=== PATIENT | female | born 2000 | race Caucasian/White ===

== ENCOUNTER 2020-06-11 13:38 | Emergency (ER) | payer OTHER ==
[2020-06-11 13:52] VITALS: BP 120/78; PULSE 102; BMI 31.6
--- OUTSIDE RECORDS SUMMARY | 2020-06-11 14:04 | XMS ---
:2000 Author Organization [facility] Support Name Relationship Address Phone UE Unavailable Unavailable Unavailable SOPHIA AQUINO MOTHER [address] [facility] [place] [address] Re-disclosure Warning The records that you are about to access may contain information from federally- assisted alcohol or drug abuse programs. If such information is present, then the following federally mandated warning applies: This information has been disclosed to you from records protected by federal confidentiality rules (42 CFR part 2). The federal rules prohibit you from making any further disclosure of this information unless further disclosure is expressly permitted by the written consent of the person to whom it pertains or as otherwise permitted by 42 CFR part 2. A general authorization for the release of medical or other information is NOT sufficient for this purpose. The Federal rules restrict any use of the information to criminally investigate or prosecute any alcohol or drug abuse patient.The records that you are about to access may contain highly sensitive health information, the redisclosure of which is protected by Article 27-F of the [facility] Public Health law. If you continue you may haveaccess to information: Regarding HIV / AIDS; Provided by facilities licensed or operated by the [facility] Office of Mental Health; or Provided by the [facility] Office for People With Developmental Disabilities. If such information is present, then the following [facility] mandated warning applies: This information has been disclosed to you from confidential records which are protected by state law. State law prohibits you from making any further disclosure of this information without the specific written consent of the person to whom it pertains, or as otherwise permitted by law. Any unauthorized further disclosure in violation of state law may result in a fine or halfway sentence or both. A general authorization for the release of medical or other information is NOT sufficient authorization for further disclosure. Insurance Providers Payer name Policy type Policy ID Covered Covered libertarian's Policy P clark / Coverage libertarian ID relationship to [employer] [employer] type [place] [id number] ESSENTIAL PLAN 1 2
[2020-06-11] MEDS ORDERED: BACITRACIN 0.9 GM PACKET ONE (15:10)
[2020-06-11 15:47] LABS: BASO % 0.3 % (0-2.0); EOS % 1.9 % (0-4.5); HEMATOCRIT 40.6 % (32.4-45.2); HEMOGLOBIN 13.7 GM/dL (10.7-15.3); LYMPH % 15.5 % (8-40); MCH 30.1 pg (25.7-33.7); MCHC 33.7 g/dl (32.0-36.0); MEAN CELL VOLUME 89.3 fl (80-96); MEAN PLT VOLUME 8.6 fl (7.5-11.1); MONO % 5.7 % (3.8-10.2); NEUT % 76.6 % (42.8-82.8); PLATELET COUNT 302 K/MM3 (134-434); RBC 4.55 M/mm3 (3.60-5.2); RDW 13.5 % (11.6-15.6); WHITE BLOOD COUNT 9.2 K/mm3 (4.0-10.0)
[2020-06-11 16:08] LABS: POTASSIUM 4.2 mmol/L (3.5-5.1)
[2020-06-11 16:10] LABS: CALCIUM 9.8 mg/dL (8.5-10.1)
[2020-06-11 16:11] LABS: ALBUMIN 3.8 g/dl (3.4-5.0); BLOOD UREA NITROGEN 6.4 mg/dL (7-18)
[2020-06-11 16:14] LABS: CREATININE 0.4 mg/dL (0.55-1.3)
[2020-06-11 16:15] LABS: BILIRUBIN,TOTAL 0.5 mg/dL (0.2-1); TOT PROT 7.9 g/dl (6.4-8.2)
--- NOTE | 2020-06-11 16:17 | PDOC ---
History of Present Illness - General Chief Complaint: Pain Stated Complaint: POSSIBLE ETOPIC Time Seen by Provider: 06/11/20 14:35 History Source: Patient Exam Limitations: No Limitations - History of Present Illness Initial Comments: 06/11/20 16:12 20-year-old female history of asthma, LMP March 07, 2020 presents complaining of pelvic pain x 4 days with dysuria. Patient reports positive urine test taken at a pharmacy in the [facility] on March 2020. Went to a clinic April 28 and was told she is 6 weeks on ultrasound. Return to the [place] June 01, 2020. Went to [facility] today was treated with Macrobid and Pyridium for UTI. Had a urine test which is negative. Sent to the ED for further evaluation. Patient reports nausea and morning vomiting for 2 months associated with breast tenderness. denies vaginal bleeding, vaginal dis charge, back pain, chest pain, shortness of breath, palpitations, fever, chills. Patient does not take control and is currently sexually active with male partner, does not use protection. Has an OB appointment scheduled for June 26, 2020. ROS: as above PE: GENERAL: well-appearing, NAD HEAD: NCAT EYES: Pupils equal, round and reactive to light, sclera anicteric, conjunctiva clear ENT: pharynx: no erythema, no exudate, uvula midline NECK: supple CHEST: nontender RESP: clear, no w/r/r CARDIO: rrr, no m/g/r ABD: +BS, soft, nontender, non distended : deferred BACK: no midline spinal ttp, no CVAT EXTREMITIES: Normal range of motion, no edema NEUROLOGICAL: Normal speech, normal gait SKIN: Warm, Dry 06/11/20 17:19 Is this a multiple visit Asthma Patient?: No Past History - Medical History Allergies/Adverse Reactions: Allergies Allergy/AdvReac Type Severity Reaction Status Date / Time albuterol Allergy Verified 06/11/20 13:52 Home Medications: Ambulatory Orders NK [No Known Home Medication] 06/11/20 COPD: No - Reproductive History Is Patient Now?: No - Psycho-Social/Smoking History Smoking History: Never smoked *Physical Exam - Vital Signs Last Vital Signs Temp Pulse Resp BP Pulse Ox 102 H 18 120/78 100 06/11/20 13:46 06/11/20 13:46 06/11/20 13:46 06/11/20 13:46 ED Treatment Course - LABORATORY CBC & Chemistry Diagram: 06/11/20 15:30 06/11/20 15:30 - ADDITIONAL ORDERS Additional order review: Laboratory Results 06/11/20 15:30 Sodium 134 L Potassium 4.2 Chloride 104 Carbon Dioxide 23 Anion Gap 7 L BUN 6.4 L Random Glucose 68 L Calcium 9.8 Albumin 3.8 06/11/20 15:30 RBC 4.55 MCV 89.3 MCHC 33.7 RDW 13.5 MPV 8.6 Neutrophils % 76.6 Lymphocytes % 15.5 Monocytes % 5.7 Eosinophils % 1.9 Basophils % 0.3 Medical Decision Making - Medical Decision Making 06/11/20 16:17 20-year-old female history of asthma, LMP March 07, 2020 presents complaining of pelvic pain x 4 days with dysuria. Patient reports positive urine test taken at a pharmacy in the [facility] on March 2020. Went to a clinic April 28 and was told she is 6 weeks on ultrasound. Return to the [place] June 01, 2020. Went to [facility] today was treated with Macrobid and Pyridium for UTI. Had a urine test which is negative. Sent to the ED for further evaluation. Patient reports nausea and morning vomiting for 2 months associated with breast tenderness. denies vaginal bleeding, vaginal discharge, back pain, chest pain, shortness of breath, palpitations, fever, chills. Patient does not take control and is currently sexually active with male partner, does not use protection. Has an OB appointment scheduled for June 26, 2020. Labs including beta hCG Urine test Reassess 06/11/20 18:23 [facility] [place] UA 2+ leukocytes, WBC: 243 transvaginal US: 13 wks GA Keep your appointment scheduled with OB June 26, 2020 Return precautions discussed Take Macrobid as prescribed by [facility] today Discharge - Discharge Information Problems reviewed: Yes Clinical Impression/Diagnosis: Pelvic pain UTI (urinary tract infection) Qualifiers: Urinary tract infection type: acute cystitis Hematuria presence: without hematuria Qualified Code(s): N30.00 - Acute cystitis without hematuria Condition: Stable Disposition: HOME - Admission No - Follow up/Referral - Patient Discharge Instructions Additional Instructions: Take Macrobid as prescribed Keep your appointment scheduled with OB June 26, 2020 Return to ED if vaginal bleeding, abdominal pain, vaginal discharge, fever, chills, back pain or any concerning symptom - Post Discharge Activity
[2020-06-11 16:42] LABS: EPI CELLS >36 /uL (0-25.1); HYALINE CASTS 14 /uL (0-3.1); URINE APPEARANCE CLOUDY; URINE BACTERIA 4181 /uL (0-1359); URINE BILIRUBIN NEGATIVE (NEGATIVE); URINE COLOR YELLOW; URINE GLUCOSE (UA) NEGATIVE (NEGATIVE); URINE KETONE 4+ (NEGATIVE); URINE LEUK ESTERASE 2+ (NEGATIVE); URINE NITRITE NEGATIVE (NEGATIVE); URINE PROTEIN TRACE (NEGATIVE); URINE RBC 13 /uL (0-23.9); URINE WBC 243 /uL (0-25.8)
[2020-06-11 16:57] LABS: HCG,QUALITATIVE URINE Positive
== END 2020-06-11 18:33 | disposition home or self-care (01) ==
LOC: JER 13:38
DX: R10.2 Pelvic and perineal pain (principal); N30.00 Acute cystitis without hematuria
CPT/HCPCS: 36415; 76801-TC; 80053; 81003; 84702; 84703; 85025; 87086; 99284-25

== ENCOUNTER 2020-12-19 06:55 | Inpatient (IN) | payer OTHER ==
[2020-12-19] MEDS ORDERED: BUTORPHANOL TARTRATE 1 MG/ML VIAL IVPB PRN (07:40)
[2020-12-19] MEDS ORDERED: DINOPROSTONE 10 MG VAGINAL SUPPOSITORY VG ONE (07:41)
[2020-12-19] MEDS ORDERED: ELECTROLYTE-148 SOLN 1,000 ML IV SCH (07:45)
[2020-12-19 08:16] LABS: BASO % 0.3 % (0-2.0); EOS % 1.8 % (0-4.5); HEMATOCRIT 32.7 % (32.4-45.2); HEMOGLOBIN 11.2 GM/dL (10.7-15.3); LYMPH % 20.8 % (8-40); MCH 30.2 pg (25.7-33.7); MCHC 34.4 g/dl (32.0-36.0); MEAN PLT VOLUME 7.8 fl (7.5-11.1); MONO % 8.2 % (3.8-10.2); NEUT % 68.9 % (42.8-82.8); PLATELET COUNT 298 K/MM3 (134-434); RBC 3.72 M/mm3 (3.60-5.2); RDW 14.2 % (11.6-15.6); WHITE BLOOD COUNT 6.9 K/mm3 (4.0-10.0)
[2020-12-19 08:19] LABS: INR 0.94 (0.83-1.09); PROTHROMBIN TIME (PATIENT) 11.4 SEC (9.7-13.0)
[2020-12-19 08:22] LABS: ACTIVATED PTT 25.2 SECONDS (25.2-36.5)
[2020-12-19 08:39] VITALS: BMI 33.6
[2020-12-19 08:42] LABS: CREATININE 0.5 mg/dL (0.55-1.3)
[2020-12-19 11:26] LABS: HIV INTERPRETATION NEGATIVE (NEGATIVE)
[2020-12-19] MEDS ORDERED: PENICILLIN G POTASSIUM 5,000,000 (5Mm) UNIT VIAL IVPB ONE (21:21)
[2020-12-19] MEDS ORDERED: PENICILLIN G POTASSIUM 5,000,000 (5Mm) UNIT VIAL IVPB SCH (21:30)
[2020-12-19] MEDS ORDERED: OXYTOCIN 30 UNITS in 0.9% NS 30 UNIT/500 ML INFUS.BAG IVPB SCH (21:30)
[2020-12-19] MEDS ORDERED: PENICILLIN G POTASSIUM 5,000,000 UNIT in SODIUM CHLORIDE 250 ML IVPB ONE (22:00)
[2020-12-19] MEDS ORDERED: NALOXONE HCL 0.4 MG/ML VIAL IVPUSH PRN (22:08)
[2020-12-19] MEDS ORDERED: FENTANYL/BUPIVACAINE/NS/PF - PCEA - 50 ML DISP.SYRIN EP SCH (22:15)
[2020-12-19] MEDS ORDERED: FENTANYL/BUPIVACAINE/NS/PF - PCEA - 50 ML DISP.SYRIN EP ONE (22:39)
[2020-12-19] MEDS ORDERED: OXYTOCIN 30 UNITS in 0.9% NS 30 UNIT/500 ML INFUS.BAG IVPB ONE (23:46)
[2020-12-20] MEDS: PENICILLIN G POTASSIUM 2,500,000 UNIT in SODIUM CHLORIDE 100 ML IVPB SCH ×2 (02:00→06:00)
[2020-12-20] MEDS ORDERED: FENTANYL/BUPIVACAINE/NS/PF - PCEA - 50 ML DISP.SYRIN EP ONE (03:42)
[2020-12-20] MEDS ORDERED: BISACODYL 10 MG SUPP.RECT PR PRN (05:35)
[2020-12-20] MEDS ORDERED: IBUPROFEN 600 MG TABLET (FP) PO PRN (05:35)
[2020-12-20] MEDS ORDERED: BENZOCAINE 20% 57 GM BOTTLE TP PRN (05:35)
[2020-12-20] MEDS ORDERED: METHYLERGONOVINE MALEATE 0.2 MG/1 ML AMP IM PRN (05:35)
[2020-12-20] MEDS ORDERED: ACETAMINOPHEN 325 MG TABLET (FP) PO PRN (05:35)
[2020-12-20] MEDS ORDERED: WITCH HAZEL 50% (TUCKS) 40 PAD/JAR PAD TP PRN (05:35)
[2020-12-20] MEDS ORDERED: BENZOCAINE 28 GM HEMORRHOIDAL OINTMENT PR PRN (05:35)
[2020-12-20] MEDS ORDERED: OXYTOCIN 20 UNITS in 0.9% NS 20 UNIT/1,000 ML INFUS.BAG IV ONE ×2 (08:09→10:43)
[2020-12-20] MEDS ORDERED: LIDOCAINE HCL 1% PRESERVATIVE FREE - 30ML VIAL ONE (08:11)
[2020-12-20] MEDS ORDERED: SODIUM CHLORIDE 1,000 ML IV SCH ×2 (09:00→11:00)
[2020-12-20] MEDS: OXYTOCIN 20 UNITS in 0.9% NS 20 UNIT/1,000 ML INFUS.BAG IV SCH ×2 (09:00→10:45)
[2020-12-20] MEDS ORDERED: MISOPROSTOL 100 MCG TABLET NR ONE (09:10)
[2020-12-20] MEDS ORDERED: MISOPROSTOL 200 MCG TABLET PV ONE (09:30)
[2020-12-20 09:33] LABS: HEMATOCRIT 28.2 % (32.4-45.2); HEMOGLOBIN 9.4 GM/dL (10.7-15.3); MCH 29.7 pg (25.7-33.7); MCHC 33.4 g/dl (32.0-36.0); MEAN CELL VOLUME 88.9 fl (80-96); MEAN PLT VOLUME 7.9 fl (7.5-11.1); PLATELET COUNT 305 K/MM3 (134-434); RBC 3.17 M/mm3 (3.60-5.2); RDW 14.2 % (11.6-15.6); WHITE BLOOD COUNT 13.1 K/mm3 (4.0-10.0)
[2020-12-20] MEDS ORDERED: ACETAMINOPHEN 500 MG TABLET (FP) PO ONE (10:50)
[2020-12-20] MEDS ORDERED: ACETAMINOPHEN 500 MG TABLET (FP) ONE (10:55)
[2020-12-20 10:56] LABS: CORD BASE EXCESS -6.9 mmol/L (0-2); CORD HCO3 18.8 mmHg (20-29); CORD PCO2 38.6 mmHg (30-78); CORD pH 7.305 (7.14-7.44)
[2020-12-20 11:00] LABS: INR 0.98 (0.83-1.09); PROTHROMBIN TIME (PATIENT) 12.1 SEC (9.7-13.0)
[2020-12-20 11:00] LABS: CORD BASE EXCESS -7.1 mmol/L (0-2); CORD HCO3 22.1 mmHg (20-29); CORD PCO2 58.6 mmHg (30-78); CORD pH 7.195 (7.14-7.44)
[2020-12-20 11:03] LABS: ACTIVATED PTT 23.7 SECONDS (25.2-36.5)
[2020-12-20 13:57] LABS: BASO % 0.1 % (0-2.0); HEMATOCRIT 35.3 % (32.4-45.2); HEMOGLOBIN 11.8 GM/dL (10.7-15.3); MCH 29.7 pg (25.7-33.7); MCHC 33.4 g/dl (32.0-36.0); MEAN CELL VOLUME 89.1 fl (80-96); MONO % 7.6 % (3.8-10.2); NEUT % 87.3 % (42.8-82.8); PLATELET COUNT 214 K/MM3 (134-434); RBC 3.97 M/mm3 (3.60-5.2); RDW 13.6 % (11.6-15.6); WHITE BLOOD COUNT 13.7 K/mm3 (4.0-10.0)
[2020-12-20 14:11] LABS: INR 0.97 (0.83-1.09); PROTHROMBIN TIME (PATIENT) 11.9 SEC (9.7-13.0)
[2020-12-20 14:13] LABS: ACTIVATED PTT 23.7 SECONDS (25.2-36.5)
[2020-12-20 21:58] LABS: BASO % 0.8 % (0-2.0); EOS % 0.3 % (0-4.5); HEMATOCRIT 30.7 % (32.4-45.2); HEMOGLOBIN 10.3 GM/dL (10.7-15.3); LYMPH % 12.3 % (8-40); MCH 29.5 pg (25.7-33.7); MCHC 33.6 g/dl (32.0-36.0); MEAN CELL VOLUME 87.7 fl (80-96); MEAN PLT VOLUME 7.8 fl (7.5-11.1); MONO % 10.9 % (3.8-10.2); NEUT % 75.7 % (42.8-82.8); PLATELET COUNT 205 K/MM3 (134-434); RDW 13.6 % (11.6-15.6); WHITE BLOOD COUNT 11.8 K/mm3 (4.0-10.0)
[2020-12-21 07:57] LABS: BASO % 0.1 % (0-2.0); EOS % 1.1 % (0-4.5); HEMATOCRIT 29.2 % (32.4-45.2); HEMOGLOBIN 9.8 GM/dL (10.7-15.3); LYMPH % 18.5 % (8-40); MCH 29.5 pg (25.7-33.7); MCHC 33.5 g/dl (32.0-36.0); MEAN CELL VOLUME 88.2 fl (80-96); MEAN PLT VOLUME 7.9 fl (7.5-11.1); MONO % 9.5 % (3.8-10.2); NEUT % 70.8 % (42.8-82.8); PLATELET COUNT 221 K/MM3 (134-434); RBC 3.32 M/mm3 (3.60-5.2); RDW 14.3 % (11.6-15.6); WHITE BLOOD COUNT 11.5 K/mm3 (4.0-10.0)
[2020-12-21 16:26] LABS: HEMATOCRIT 28.4 % (32.4-45.2); HEMOGLOBIN 9.7 GM/dL (10.7-15.3); MCH 30.2 pg (25.7-33.7); MCHC 34.3 g/dl (32.0-36.0); MEAN PLT VOLUME 7.5 fl (7.5-11.1); PLATELET COUNT 226 K/MM3 (134-434); RBC 3.22 M/mm3 (3.60-5.2); RDW 14.2 % (11.6-15.6); WHITE BLOOD COUNT 10.3 K/mm3 (4.0-10.0)
[2020-12-22 13:39] VITALS: BP 112/62; PULSE 88; TEMP 98.4
== END 2020-12-22 12:55 | disposition home or self-care (01) | DRG 560 ==
LOC: JLDR 06:55 → J3W 12-20 16:15
PROVIDERS: ADMIT Obstetrics & Gynecology; ATTEND Obstetrics & Gynecology
PROC: 3E0P7VZ Introduction of Hormone into Female Reproductive, Via Natural or Artificial Opening (ICD-10-PCS; principal; 2020-12-19)
PROC: 10D07Z6 Extraction of Products of Conception, Vacuum, Via Natural or Artificial Opening (ICD-10-PCS; 2020-12-20)
PROC: 30233N1 Transfusion of Nonautologous Red Blood Cells into Peripheral Vein, Percutaneous Approach (ICD-10-PCS; 2020-12-20)
PROC: 30233K1 Transfusion of Nonautologous Frozen Plasma into Peripheral Vein, Percutaneous Approach (ICD-10-PCS; 2020-12-20)
DX: O63.1 Prolonged second stage (of labor) (principal); O72.1 Other immediate postpartum hemorrhage; O75.81 Maternal exhaustion complicating labor and delivery; O70.1 Second degree perineal laceration during delivery; O48.0 Post-term pregnancy; Z3A.40 40 weeks gestation of pregnancy; Z37.0 Single live birth
CPT/HCPCS: 36415; 36600; 59409; 80048; 82803; 85025; 85027; 85384; 85610; 85730; 86780; 86850; 86900; 86901; 86922; 87389; C9803; P9017; P9058; U0003; U0005

== ENCOUNTER 2020-12-23 22:57 | Inpatient (IN) | payer OTHER ==
[2020-12-23 23:10] VITALS: BP 138/87; PULSE 87; TEMP 98.2; BMI 31.6
[2020-12-23] MEDS ORDERED: MAG HYDROX/AL HYDROX/SIMETH 30 ML UNIT-DOSE CUP PO ONE (23:36)
[2020-12-23] MEDS ORDERED: ONDANSETRON 4 MG TABLET PO ONE (23:36)
[2020-12-24 00:25] LABS: HEMATOCRIT 32.3 % (32.4-45.2); MCH 30.4 pg (25.7-33.7); MEAN CELL VOLUME 89.4 fl (80-96); MEAN PLT VOLUME 7.4 fl (7.5-11.1); PLATELET COUNT 338 K/MM3 (134-434); RBC 3.62 M/mm3 (3.60-5.2); RDW 14.5 % (11.6-15.6); WHITE BLOOD COUNT 8.3 K/mm3 (4.0-10.0)
[2020-12-24 01:47] LABS: CALCIUM 8.8 mg/dL (8.5-10.1)
[2020-12-24 01:48] LABS: ALBUMIN 2.8 g/dl (3.4-5.0); BLOOD UREA NITROGEN 6.9 mg/dL (7-18)
[2020-12-24 01:51] LABS: CREATININE 0.6 mg/dL (0.55-1.3)
[2020-12-24 01:52] LABS: BILIRUBIN,TOTAL 1.9 mg/dL (0.2-1)
[2020-12-24 01:53] LABS: TOT PROT 6.2 g/dl (6.4-8.2)
== END 2020-12-24 04:15 | disposition left against medical advice (07) | DRG 561 ==
LOC: JER 22:57 → JERBED 12-24 02:14
PROVIDERS: ADMIT Hospitalist; ATTEND Hospitalist
DX: O99.63 Diseases of the digestive system complicating the puerperium (principal); K80.70 Calculus of gallbladder and bile duct without cholecystitis without obstruction; R74.01 Elevation of levels of liver transaminase levels; R11.0 Nausea
CPT/HCPCS: 36415; 76705-TC; 80053; 84484; 85027; 93005; 93010; 99285-25; C9803; U0003; U0005